=== PATIENT | male | born 1955 | race Caucasian/White ===

== ENCOUNTER 2023-02-01 08:51 | Day surgery (SDC) | payer MEDICARE, OTHER ==
[2023-02-01] VITALS (10 sets, daily range): BP systolic 118–150; BP diastolic 66–77
[~2023-02-01] VITALS: Ht 187 cm; Wt 138.6 kg
[2023-02-01] MEDS ORDERED: NS IV 1000 ML 1,000 ML IV ONE (09:00)
[2023-02-01] MEDS ORDERED: LIDOCAINE 1% INJ 20 ML VIAL ONE (09:07)
[2023-02-01] MEDS ORDERED: NS IV 1000 ML 1,000 ML ONE (09:07)
[2023-02-01] MEDS ORDERED: HEParin (CATH LAB) 2,000 ML IV ONE (09:07)
[2023-02-01 09:27] LABS: BILIRUBIN,URINE NEGATIVE (NEGATIVE); CLARITY,URINE CLEAR; COLOR,URINE YELLOW; GLUCOSE, URINE (UA) 3+ (NEGATIVE); KETONES,URINE NEGATIVE (NEGATIVE); LEUKOCYTE ESTERASE ,URINE NEGATIVE (NEGATIVE); NITRITE,URINE NEGATIVE (NEGATIVE); PROTEIN,URINE NEGATIVE (NEGATIVE)
[2023-02-01 09:28] LABS: HEMATOCRIT 45 % (40-54); HEMOGLOBIN 14.7 g/dL (13.3-17.7); MEAN CORPUSCULAR HEMOGLOBIN 29 pg (25-34); MEAN CORPUSCULAR HGB CONC 33 g/dL (32-36); MEAN CORPUSCULAR VOLUME 90 fL (80-99); MEAN PLATELET VOLUME 9.6 fL (9.0-12.2); PLATELET COUNT 292 10^3/uL (130-400); WHITE BLOOD COUNT 5.9 10^3/uL (4.3-11.0)
[2023-02-01 09:36] LABS: BACTERIA,URINE TRACE /HPF; RBC,URINE RARE /HPF; SQUAMOUS EPITHELIAL CELL,UR RARE /HPF
[2023-02-01 09:39] LABS: PROTHROMBIN TIME PATIENT 13.7 SEC (12.2-14.7)
--- NOTE | 2023-02-01 09:42 | Diagnostic Imaging Report ---
INDICATION: Pre-heart catheter exam. COMPARISON: None FINDINGS: Single frontal radiograph view of the chest was obtained and demonstrates moderate cardiomegaly. Pulmonary vasculature, however is within normal limits. Sternotomy wires noted. Lungs are clear. There is no focal consolidation, large effusion, nor pneumothorax. Osseous structures show no gross acute abnormalities. IMPRESSION: 1. Moderate cardiomegaly, but no evidence of failure or focal infiltrate. Dictated by: Dictated on workstation # [id number]
[2023-02-01 09:46] LABS: ALBUMIN 4.1 GM/DL (3.2-4.5); BILIRUBIN,TOTAL 0.7 MG/DL (0.1-1.0); CALCIUM 9.3 MG/DL (8.5-10.1); CREATININE SERUM 1.01 MG/DL (0.60-1.30); POTASSIUM 4.2 MMOL/L (3.6-5.0); TOTAL PROTEIN 7.1 GM/DL (6.4-8.2)
[2023-02-01] MEDS ORDERED: GABA-490 PO (09:48)
[2023-02-01] MEDS ORDERED: DONE5TAB8 PO (09:48)
[2023-02-01] MEDS ORDERED: MEMA5TAB PO (09:48)
[2023-02-01] MEDS ORDERED: MELA1TAB27 PO (09:48)
[2023-02-01] MEDS ORDERED: APIX5TAB PO (09:48)
[2023-02-01] MEDS ORDERED: DULO30CA49 PO (09:48)
[2023-02-01] MEDS ORDERED: LOPE-175 PO (10:10)
[2023-02-01] MEDS ORDERED: ACHD5005 PO (10:10)
[2023-02-01] MEDS ORDERED: TMSL.4C PO (10:10)
[2023-02-01] MEDS ORDERED: PRAV40TA2 PO (10:10)
[2023-02-01] MEDS ORDERED: METO37.5 PO (10:10)
[2023-02-01] MEDS ORDERED: PRAM0.128 PO (10:10)
[2023-02-01] MEDS ORDERED: EMPA25TA PO (10:10)
[2023-02-01] MEDS ORDERED: MELA3TAB39 PO (10:10)
[2023-02-01] MEDS ORDERED: INSU100I88 SQ (10:10)
[2023-02-01] MEDS ORDERED: INSU100I14 SQ (10:10)
[2023-02-01] MEDS ORDERED: MIRA50TA PO (10:10)
[2023-02-01] MEDS ORDERED: FURO20TA4 PO (10:10)
[2023-02-01] MEDS ORDERED: PIOG30TA71 PO (10:10)
[2023-02-01] MEDS ORDERED: POTA-330 PO (10:17)
[2023-02-01] MEDS ORDERED: INSU100I76 SQ (10:17)
[2023-02-01] MEDS ORDERED: fentaNYL INJ 100 MCG/2 ML AMP ONE (10:34)
[2023-02-01] MEDS ORDERED: MIDAZOLAM 5 MG/5 ML (VERSED) VIAL ONE (10:34)
--- NOTE | 2023-02-01 10:36 | Cardiac Procedure Note-CS/ASA ---
Pre-Procedure Note Pre-Op Procedure Note Date of Available H&P: Jan 31, 2023 Date H&P Reviewed: Feb 01, 2023 Time H&P Reviewed: 10:35 History & Physical: H&P Reviewed, Patient Examed, No changes noted Pre-Operative Diagnosis: Peripheral arterial disease Moderate Sedation PreProcedure Time 10:35 ASA Score 3 Airway Lungs Heart ASA score ASA 1: a normal healthy patient ASA 2: a patient with a mild systemic disease (mid diabetes, controlled hypertension, obesity ASA 3: a patient with a severe systemic disease that limits activity (angina, COPD, prior Myocardial infarction) ASA 4: a patient with an incapacitating disease that is a constant threat to life (CHF, renal failure) ASA 5: a moribund patient not expected to survive 24 hrs. (ruptured aneurysm) ASA 6: a declared brain- patient whose organs are being harvested. For emergent operations, add the letter E after the classification Mallampati Classification Grade 3 Sedation Plan Analgesia, Amnesia, Plan communicated to team members, Discussed options with patient/fam, Discussed risks with patient/fam The patient is an appropriate candidate to undergo the planned procedure, sedation, and anesthesia. The patient immediately re-assessed prior to indication. JONES PATEL MD Feb 01, 2023 10:36
[2023-02-01] MEDS ORDERED: HEParin 1000 UNIT/ML (10ML VIAL) FOR BOLUS ONE (11:14)
[2023-02-01] MEDS ORDERED: NITRO DRIP 25000 MCG/D5W 0 ML IV ONE (11:14)
[2023-02-01] MEDS ORDERED: NS IV 1000 ML 1,000 ML IV SCH (11:30)
[2023-02-01] MEDS ORDERED: PATIENT MAY USE OWN MEDS, ALL PO SCH (11:30)
--- NOTE | 2023-02-01 11:30 | Discharge Inst-Post CATH ---
Discharge Inst-CATH/EP Problems Reviewed?: Yes Post Cardiac Cath/EP D/C Inst Follow Up/Plan Follow-up with primary [facility] in 2 to 4 weeks <b>CARDIAC CATH/EP PROCEDURE DISCHARGE INSTRUCTIONS</b> ACTIVITY * Go Home directly and rest. * Limit activity of the leg (or wrist if it was used) for 7 days including aer obics, swimming, jogging, bicycling, etc. * Restrict stair-climbing for 7 days if possible, if not, climb up with your non-cath leg, then bring together on the same step. * Avoid lifting, pushing, pulling or excessive movement of the affected extremi ty for 7 days. * Customary sexual activity may be resumed after 2 days-use caution not to use a position that strains or causes pain to the affected extremity. * No driving for 24 hours. * NO SMOKING. * Avoid straining for bowel movements for 7 days. * Gentle walking on level ground is allowed. * Returning to work will depend on the type of procedure and the results. Your doctor will discuss this with you. CALL YOUR DOCTOR FOR ANY OF THE FOLLOWING: *If bleeding from the puncture site occurs- Apply gentle pressure to site with clean cloth and call your doctor or EMS. * If a knot or lump forms under the skin, increases in size, or causes pain. * If bruising appears to be worsening or moving further down your leg instead of disappearing. * Temperature above 101 F. CARE OF YOUR GROIN INCISION; * Bruising or purple discoloration of the skin near the puncture site is common. * You may shower only, no bathtub bathing for 5 days. Be careful to avoid slipping as your leg may feel stiff. * If a closure device was used on your femoral artery, please see the attached guide regarding care of the device and your leg. * Leave dressing on FOR 24 hours. CARE OF YOUR WRIST INCISION; * Bruising or purple discoloration of the skin near the puncture site is common. * You may shower. * DO NOT submerge wrist. * Leave dressing on FOR 24 hours. JONES PATEL MD Feb 01, 2023 11:30
--- NOTE | 2023-02-01 11:37 | Peripheral Report ---
Peripheral Report Physician (s)/Courier Delivery Driver (s) Physician JONES PATEL MD Pre-Procedure Diagnosis Pre-Procedure Diagnosis: Peripheral arterial disease Post-Procedure Note Procedure Start Date: Feb 01, 2023 Name of Procedure: Bilateral lower extremities runoff Third order Additional imaging x3 Findings/Procedure Note PROCEDURE NOTE: 67-year-old gentleman with history of coronary artery disease, has been having claudication. Leg cramps. Had abnormal ultrasound to the left lower extremity suggestive of SFA stenosis. Scheduled for peripheral angiogram After explaining the procedure to the patient, all pros and cons were explained, all questions were answered. The patient signed the consent and then he was placed on the cardiac catheterization laboratory. The patient was placed on the cardiac catheterization laboratory. Groin was prepped SL fashion local anesthesia was used. Sheath placed in the right femoral artery, runoff to the right leg was done then I repeated DSA imaging at the level of the trifurcation and DSA imaging at the level of the foot. Rim catheter was used to cross over, placed at the left common iliac artery and runoff to the left leg was done. Storq wire was advanced and a straight catheter was placed in the popliteal artery on the left and did DSA imaging at the level of the trifurcation then DSA imaging at the level of the foot the catheter was flushed and pressure was measured then pulled back to the proximal SFA was done then I did DSA imaging to the mid SFA I pulled the catheter back to the left common femoral artery and repeated runoff to the left leg. At the end of the procedure the sheath was removed with closure device deployed FINDINGS: Right lower extremity: Right common femoral artery, right SFA, right popliteal artery has mild calcification with mild disease nonobstructive disease Right tibial peroneal trunk has mild disease Anterior tibial artery has multiple segment of moderate to severe stenosis distally Posterior tibial artery is occluded, peroneal artery is occluded Left lower extremity: Left common iliac and common femoral artery has mild disease nonobstructive disease Left SFA has mild to moderate stenosis, calcified artery at the midportion. Nonobstructive disease, less than 10 mmHg pressure gradient within the SFA Left popliteal artery has no obstructive disease Left tibioperoneal trunk, anterior tibial, posterior tibial and peroneal artery has mild disease nonobstructive disease CONCLUSIONS: Occluded right posterior tibial artery and peroneal artery, severe stenosis at the distal anterior tibial artery Calcified left SFA with mild to moderate stenosis nonobstructive disease No significant obstructive disease below the knee on the left side DISCUSSION AND RECOMMENDATIONS: Continue maximizing medical therapy, if patient became symptomatic on the right we will consider intervention below the knee Anesthesia Type: Conscious Sedation Estimated blood loss (mL): 15 ml Contrast Amount: 47 ml Total Radiation Dose: 448 mGy Post-Procedure Diagnosis Post-operative diagnosis: Peripheral arterial disease Claudication Hypertension Hyperlipidemia Coronary artery disease JONES PATEL MD Feb 01, 2023 11:37
== END 2023-02-01 16:20 | disposition home or self-care (01) ==
LOC: CATH 08:51 → SDC 11:45 → CATH 16:20
PROVIDERS: ATTEND Internal Medicine Cardiovascular Disease
DX: I77.1 Stricture of artery (principal); I70.202 Unspecified atherosclerosis of native arteries of extremities, left leg; I10 Essential (primary) hypertension; E78.2 Mixed hyperlipidemia; I65.23 Occlusion and stenosis of bilateral carotid arteries; I48.19 Other persistent atrial fibrillation; I48.92 Unspecified atrial flutter; N40.1 Benign prostatic hyperplasia with lower urinary tract symptoms; E11.9 Type 2 diabetes mellitus without complications; Z95.1 Presence of aortocoronary bypass graft; Z79.01 Long term (current) use of anticoagulants; Z68.39 Body mass index [BMI] 39.0-39.9, adult; Z79.4 Long term (current) use of insulin; Z87.891 Personal history of nicotine dependence
CPT/HCPCS: 36247; 36248; 71045; 75716; 80053; 80061; 81000; 85027; 85610; 85730; 87081; 93005; C1760; C1769; C1887 ×2; C1894; 36415